=== PATIENT | male | born 1985 | race Caucasian/White ===

== ENCOUNTER 2019-10-11 18:01 | Emergency (ER) | payer SELFPAY ==
[~2019-10-11] VITALS: Ht 182.9 cm; Wt 63.5 kg
[2019-10-11 18:03] VITALS: BP_SYST 125
[2019-10-11 19:25] VITALS: BP_SYST 125
== END 2019-10-11 19:25 ==
LOC: SED 18:01
DX: R11.10 Vomiting, unspecified (principal); R51 Headache; M79.18 Myalgia, other site
CPT/HCPCS: 82962; 99283